=== PATIENT | male | born 1975 | race American Indian/Alaskan Native ===

== ENCOUNTER 2021-12-21 12:21 | Emergency (ER) | payer SELFPAY ==
[2021-12-21 12:43] VITALS: BP 187/117
[2021-12-21 13:06] LABS: Basophils # (Auto) 0.1 K/mm3 (0.0-0.1); Basophils % (Auto) 0.7 % (0.0-1.8); Eosinophils # (Auto) 0.1 K/mm3 (0.0-0.4); Eosinophils % (Auto) 1.8 % (0.0-4.3); Hematocrit 45.1 % (35.5-45.6); Hemoglobin 14.9 gm/dl (11.8-15.2); Lymphocytes # (Auto) 2.5 K/mm3 (1.2-5.4); Lymphocytes % (Auto) 33.1 % (13.4-35.0); Mean Corpuscular HGB Conc 33 % (32-34); Mean Corpuscular Volume 81 fl (84-94); Monocytes # (Auto) 0.6 K/mm3 (0.0-0.8); Monocytes % (Auto) 7.8 % (0.0-7.3); Platelet Count 325 K/mm3 (140-440); Red Blood Count 5.55 M/mm3 (3.65-5.03); Red Cell Distribution Width 14.9 % (13.2-15.2)
[2021-12-21 13:33] LABS: Alanine Aminotransferase 26 units/L (7-56); Albumin 4.7 g/dL (3.9-5); BUN/Creatinine Ratio 10; Blood Urea Nitrogen 11 mg/dL (9-20); Calcium 9.4 mg/dL (8.4-10.2); Hemolysis Index 4
[2021-12-21 13:59] LABS: Amphetamine Screen,Urine Negative; Benzodiazepines Screen,Urine Negative; Cocaine Screen,Urine Negative; Methadone Screen,Urine Negative; Opiate Screen,Urine Negative
[2021-12-21 14:08] LABS: Bacteria,Urine 4+ /HPF (Negative); Bilirubin,Urine NEG (Negative); Blood,Urine NEG (Negative); Color,Urine Yellow (Yellow); Hyaline Casts,Urine 2 /LPF; Mucus,Urine 3+ /HPF; Renal Epithelial Cells,Urine 4 /LPF; Urobilinogen,Urine < 2.0 mg/dL (<2.0)
[2021-12-21 14:29] LABS: Cannabinoid Screen,Urine Positive
--- NOTE | 2021-12-22 10:04 | Electrocardiograph Report ---
[facility] Test Date: 2021-12-21 Test Time: 12:49:38 Pat Name: CORAZON ABBOTT Department: Room: Gender: M Cashier Assistant: ALLISON : 1975 Requested By: ED DOC Order Number: [id number] Reading MD: Francisco Vera Measurements Intervals Trout Rate: 66 P: 14 VA: 185 QRS: 39 QRSD: 98 T: 34 QT: 410 QTc: 429 Interpretive Statements Sinus rhythm Probable left ventricular hypertrophy ST elev, probable normal early repol pattern No previous ECG available for comparison Electronically Signed On 12-22-2021 10:04:05 EDT by Francisco Vera
== END 2021-12-21 19:00 | disposition left against medical advice (07) ==
LOC: ED 12:21
DX: K08.89 Other specified disorders of teeth and supporting structures (principal); I10 Essential (primary) hypertension; Z53.21 Procedure and treatment not carried out due to patient leaving prior to being seen by health care provider; Z79.899 Other long term (current) drug therapy
CPT/HCPCS: 36415; 80053; 80307; 81001; 84484; 85025; 87076; 87086; 87186; 93005